=== PATIENT | male | born 2000 | race Caucasian/White ===

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

== ENCOUNTER 2018-04-11 06:36 | Emergency (ER) | payer MEDICARE, OTHER ==
--- NOTE | 2018-04-11 07:01 | PDOC ---
History of Present Illness - General Stated Complaint: SORE THROAT Time Seen by Provider: 04/11/18 07:00 History Source: Patient - History of Present Illness Initial Comments: 04/11/18 07:24 17 year old male presents with no past medical history presents complaining of right sided sore throat x1 week. He states his symptoms are associated with slight muffling of his voice. He states he has had difficultly eating solid food , but has been able to drink water. He denies fever, chills, nausea, vomiting, shortness of breath, ear pain, drooling. He denies sick contacts. He states this has never happened to him before. Pt states he has had multiple surgeries ( years ago) on his right eye, and has residual upper eyelid swelling from it. Past History - Past Medical History Allergies/Adverse Reactions: Allergies Allergy/AdvReac Type Severity Reaction Status Date / Time No Known Drug Allergies Allergy Verified 04/11/18 07:06 walnut Allergy Verified 04/11/18 07:06 Home Medications: Ambulatory Orders No Home Medications 0 dose .ROUTE UTDICT 02/20/13 Asthma: Yes COPD: No - Immunization History Immunization Up to Date: Yes - Suicide/Smoking/Psychosocial Hx Smoking Status: No Smoking History: Never smoked Have you smoked in the past 12 months: No Number of Cigarettes Smoked Daily: 0 Hx Alcohol Use: No Drug/Substance Use Hx: No Substance Use Type: None Review of Systems - Review of Systems Able to Perform ROS?: Yes Comments:: 04/11/18 07:29 General: denies fever, chills, night sweats, generalized weakness. HEENT: admits to sore throat, mucus in mouth, voice changes. denies rhinorrhea, ear pain, drooling, nasal congestion. Heart: denies chest pain, palpitations, syncope, lower extremity swelling. Respiratory: denies shortness of breath, cough, sputum production, hematemesis. Abdomen: denies abdominal pain, nausea, vomiting, diarrhea, constipation, blood in stool. : denies dysuria, urinary frequency, hematuria. Musculoskeletal: denies joint pain, muscle pain, joint swelling. Neurological: denies headache, dizziness, numbness, tingling. Skin: denies rash, laceration, abrasion. *Physical Exam - Physical Exam Comments: 04/11/18 07:30 General: awake, alert and oriented X3, no apparent distress HEENT: Tonsillar enlargement grade 3, right greater than left. Uvula midline. No tonsillar exudates. Oral mucosa moist. No pooling of secretions. mild right cervical lymphadenopathy, no tenderness. Left TM pearly nicholas, no bulging or erythema. Right TM unable to be visualized due to cerumen. head is normocephalic , atraumatic. EOMI. PERRLA. Right upper eyelid drooping, baseline according to patient. Neck: supple without lymphadenopathy Heart: regular rhythm. no murmurs, rubs or gallops. Lungs: clear to auscultation bilaterally. no crackles, rhonchi or wheezing. no stridor. Abdomen: soft, nontender. normal bowel sounds. no rebound, guarding, masses. Extremities: Peripheral pulses intact. No leg edema. Neurological: Alert. Oriented x3. CN 2-12 grossly intact. Moves all four extremities. Medical Decision Making - Medical Decision Making 04/11/18 07:52 CENTOR Criteria: Tonsillar exudates - no Tender anterior cervical lymphadenopathy - no Fever by history - no Absence of cough - yes <2 criteria - advised to not do rapid strep test and do not treat with antibiotics. 04/11/18 08:[address] Youssef. Symptoms are likely viral, will be treating symptomatically. PO Motrin and Prednisone ordered. *DC/Admit/Observation/Transfer Diagnosis at time of Disposition: Sore throat - Discharge Dispostion Disposition: HOME Condition at time of disposition: Stable Decision to Admit order: No - Referrals Referrals: Miko San MD [Primary Care Provider] - - Patient Instructions Printed Discharge Instructions: DI for Pharyngitis/Tonsillopharyngitis -- Adult Additional Instructions: You were seen today by Dr. Brown for sore throat. Based on your symptoms you likely have a viral infection. This cannot be treated by antibiotics. You were given one dose of Motrin 800 mg and 1 dose of prednisone 40 mg in the Emergency Department. Take Motrin 800 mg every three times a day for pain. Drink lots of clear fluids like water or gatorade, no soda. Please follow up with your primary care provider within 7 days. Please return to the Emergency Department if you develop shortness of breath, drooling, worsening voice changes, nausea, vomiting, fever or any new, worsening or concerning symptoms. - Post Discharge Activity
[2018-04-11 07:07] VITALS: BP 132/92; PULSE 74; TEMP 99.1; BMI 33.2
--- NOTE | 2018-04-11 07:19 | PDOC ---
Attending Attestation - HPI HPI: 04/11/18 08:15 The patient is a 17 year old male, with no significant past medical history, who presents to the emergency department with right sided sore throat for about one week. He states his voice has been slightly muffled, however, denies any secretions. He denies difficulty or pain with swallowing liquids, however, reports pain with swallowing solid food. He denies compromised airway. The patient denies chest pain, shortness of breath, headache and dizziness. The patient denies fever, chills, nausea, vomit, diarrhea and constipation. The patient denies dysuria, frequency, urgency and hematuria. Allergies: NKDA Past surgical history: none reported - Medical Decision Making 04/11/18 08:15 Documentation prepared by Carly Melendez, acting as electromedical equipment technician for Lillian Youssef MD <Carly Melendez - Last Filed: 04/11/18 08:15> - Physicial Exam PE: 04/11/18 08:29 Agree with resident exam. Patient is alert and in no acute distress. Patient has R sided tonsillar swelling without exudate. Uvula is midline. No trismus. Tolerating secretions. - Medical Decision Making 04/11/18 08:30 Pt presents to the ED complaining of a one week history of mild sore throat. No signs of peritonsillar or retropharyngeal abscess. No exudate. most likely viral pharyngitis. Will treat with steroids to help with tonsillar swelling and ibuprofen for pain and discharge home. <Lillian Youssef - Last Filed: 04/11/18 08:34>
[2018-04-11] MEDS ORDERED: ACETAMINOPHEN 500 MG TABLET (FP) PO ONE (07:58)
[2018-04-11] MEDS ORDERED: IBUPROFEN 400 MG TABLET (FP) PO STA (08:04)
[2018-04-11] MEDS ORDERED: predniSONE 20 MG TABLET (UD) PO ONE (08:05)
[2018-04-11] MEDS ORDERED: predniSONE 20 MG TABLET (UD) ONE (08:16)
[2018-04-11] MEDS ORDERED: IBUPROFEN 400 MG TABLET (FP) PO ONE (08:16)
== END 2018-04-11 08:29 | disposition home or self-care (01) ==
LOC: JER 06:36
DX: J02.9 Acute pharyngitis, unspecified (principal)
CPT/HCPCS: 99281-25